=== PATIENT | male | born 1980 | race Caucasian/White ===

== ENCOUNTER 2018-05-18 06:31 | Day surgery (SDC) | payer OTHER ==
[2018-05-11 16:31] VITALS: BMI 24.6
[2018-05-18] MEDS ORDERED: oxyCODONE HCL 10 MG SUSTAINED ACTING TABLET PO ONE (06:40)
[2018-05-18] MEDS ORDERED: methylPREDNISolone ACET (DEPO) 40 MG/1 ML VIAL ONE (07:04)
[2018-05-18] MEDS ORDERED: THROMBIN (BOVINE) 5,000 UNIT VIAL TP ONE ×2 (07:04→09:44)
[2018-05-18] MEDS ORDERED: LIDOCAINE 1%/EPI 1:100000 (20 ML MULTI DOSE VIAL) ONE (07:10)
--- NOTE | 2018-05-18 07:37 | HP ---
History & Physical Update - History History: No Change - Physical Physical: No Change - Assessment Assessment: No Change - Plan Plan: No Change (full H&P in chart from 05/08/2018)
--- NOTE | 2018-05-18 07:49 | OP ---
Operative Note - Note: Operative Date: 05/18/18 Pre-Operative Diagnosis: lumbar stenosis Operation: laminecotmy of L4-L5 Surgeon: Bharath Cobos Slope Tender: Joleen Wright Anesthesiologist/HARDNESS TESTER: Soham Rosado Anesthesia: Spinal Estimated Blood Loss (mls): 30 Fluid Volume Replaced (mls): 900 Operative Report Dictated: Yes
[2018-05-18] MEDS ORDERED: MIDAZOLAM HCL 2 MG/2 ML SINGLE DOSE VIAL ONE ×3 (07:53→08:32)
[2018-05-18] MEDS ORDERED: BUPIVACAINE HCL/PF (5 MG/ML) 30 ML VIAL IJ ONE (07:54)
[2018-05-18] MEDS ORDERED: SUCCINYLCHOLINE CHLORIDE 200 MG/10 ML VIAL ONE (08:32)
[2018-05-18] MEDS ORDERED: LIDOCAINE 1%/EPI 1:100000 (50 ML MULTI DOSE VIAL) INF ONE (09:00)
[2018-05-18] MEDS ORDERED: DEXAMETHASONE SOD PHOSPHATE 4 MG/1 ML VIAL ONE ×2 (09:10→11:05)
[2018-05-18] MEDS ORDERED: ceFAZolin SODIUM 1 GM VIAL ONE ×2 (09:10→11:05)
[2018-05-18] MEDS ORDERED: ONDANSETRON 4 MG/2 ML VIAL ONE ×2 (09:10→11:05)
[2018-05-18] MEDS ORDERED: GELATIN SPONGE,ABSORBABLE 1 GM PACKET TP ONE (09:45)
[2018-05-18] MEDS ORDERED: methylPREDNISolone ACET (DEPO) 40 MG/1 ML VIAL IM ONE (09:45)
[2018-05-18] MEDS ORDERED: oxyCODONE HCL 5 MG TABLET PO PRN ×2 (10:13)
[2018-05-18] MEDS ORDERED: ONDANSETRON 4 MG/2 ML VIAL IVPUSH PRN (10:13)
[2018-05-18] MEDS ORDERED: PROMETHAZINE HCL 25 MG/1 ML VIAL IVPUSH PRN (10:13)
[2018-05-18] MEDS ORDERED: ePHEDrine SULFATE 50 MG/1 ML AMPULE ONE (11:16)
[2018-05-18 11:28] VITALS: TEMP 96
[2018-05-18] MEDS ORDERED: oxyCODONE HCL 5 MG TABLET ONE (11:46)
[2018-05-18] MEDS ORDERED: LIDOCAINE HCL/PF 2% SDV 5ML VIAL ONE (12:22)
--- NOTE | 2018-05-18 12:52 | SURG ---
Surgery Chef Broiler Or Fry Note Chef Broiler Or Fry: Joleen Wright PA-C Date of Service: 05/18/18 Diagnosis: lumbar stenosis Procedure: laminectomy of L4-L5 I was present for the entirety of the operative procedure. For further detail, please refer to operative report. Visit type - Case Type Case Type: Scheduled - Emergency Emergency Visit: No - New patient This patient is new to me today: Yes Date on this admission: 05/18/18
[2018-05-18 13:21] VITALS: BP 116/69; PULSE 72
--- NOTE | 2018-05-18 19:50 | OP ---
DATE OF OPERATION: 05/18/2018 PREOPERATIVE DIAGNOSIS: L4-5 spinal stenosis. POSTOPERATIVE DIAGNOSIS: L4-5 spinal stenosis. PROCEDURE PERFORMED: L4-5 laminectomy. SURGEON: Bharath Cobos MD SPARK PLUG ASSEMBLER: JUSTYNA Padilla ESTIMATED BLOOD LOSS: 50 mL INTRAVENOUS FLUIDS: Per Anesthesia. ANESTHESIA: Spinal/TLIP. COMPLICATIONS: None. DISPOSITION: Patient brought to the PACU in stable condition. INDICATIONS FOR SURGERY: The patient is a 38-year-old gentleman who has been suffering from pain from his back down his legs. X-rays and MRI were completed which noted that he had spinal stenosis at L4-5. He had gone through an exhaustive course of treatment for this, which included medications, physical therapy as well as injections. Unfortunately, his pain continued to persist despite all this. At this point, risks, benefits, and alternatives were discussed, and the patient consented to surgery. DESCRIPTION OF PROCEDURE: Patient was brought to the operating room by the anesthesia staff. After appropriate patient identification was performed, spinal anesthesia was given. A TLIP block was also given. Patient was able to position himself prone onto the OR table with all areas of bony prominences well padded at this time. Two needles were placed into his back to amol off the L4-5 segment. X-ray was taken to confirm this as correct. [place] were removed, and 10 mL of lidocaine with epinephrine were injected in his back at this time. His back was prepped and draped in a sterile manner. At this point, a timeout was completed. An incision was made from the top of L4 down to the bottom of L5. Dissection was carried down to the fascia. Fascia was split open at this time, and the appropriate retractors were then placed in. A spinal needle was placed onto the L4 lamina to amol off the L4-5 level. X-ray was taken to confirm this as correct. The needle was removed. The microscope was brought in. The interspinous ligament at L4-5 was removed. Portions of the L4 and L5 spinous processes were removed. Portions of the L4 and L5 lamina were removed. The flavum was identified, was removed. A complete decompression was performed such that by the end of the procedure the L5 nerve root appeared to be well decompressed. All bleeding was well controlled at this time. Steroid was placed over the nerve root. FloSeal was placed over that. The fascia was closed with a No. 1 Vicryl suture. Subcutaneous tissues were closed with 2-0 Vicryl suture. Skin was closed with 3-0 Monocryl suture. Dermabond was applied. Steri-Strips were applied. A sterile dressing was applied. Patient was placed supine on the OR bed and brought to the PACU in stable condition. Mirtha MENESES/[id number]
== END 2018-05-18 13:22 | disposition home or self-care (01) ==
LOC: FASU 06:31
PROVIDERS: ATTEND Orthopaedic Surgery Orthopaedic Surgery of the Spine
PROC: 01NB0ZZ Release Lumbar Nerve, Open Approach (ICD-10-PCS; principal; 2018-05-18 09:13)
DX: M48.061 Spinal stenosis, lumbar region without neurogenic claudication (principal)
CPT/HCPCS: 72100-TC-FY; 94760